=== PATIENT | male | born 1945 | race Caucasian/White ===

== ENCOUNTER → 2017-05-06 | Outpatient (CLI) | payer MEDICARE ==
--- NOTE | 2017-05-06 14:09 | US ---
EXAMINATION TYPE: US kidneys/renal and bladder DATE OF EXAM: 05/06/2017 COMPARISON: NONE CLINICAL HISTORY: Hematuria R31.29. Micro Hematuria EXAM MEASUREMENTS: Right Kidney: 9.7 x 5.3 x 4.8 cm Left Kidney: 10.6 x 5.6 x 5.1 cm Right Kidney: lobulated contour Left Kidney: no evidence of hydronephrosis Bladder: appears wnl Bilateral Jets seen: yes There is no evidence for hydronephrosis at this point in time. No nephrolithiasis is seen. No chayo s are identified. The urinary bladder is anechoic. Bilateral ureteral jets are seen. IMPRESSION: No significant finding is seen to account for patient's symptoms.
== END | disposition home or self-care (01) ==
LOC: RADUSWWP 12:02
PROVIDERS: ATTEND Urology
DX: R31.29 Other microscopic hematuria (principal)
CPT/HCPCS: 76770

== ENCOUNTER → 2018-07-27 | Outpatient (CLI) | payer MEDICARE ==
--- NOTE | 2018-07-27 09:39 | XR ---
EXAMINATION TYPE: XR elbow complete LT DATE OF EXAM: 07/27/2018 COMPARISON: NONE HISTORY: Pain FINDINGS: Three views of the elbow demonstrate no pathologic joint effusion. The osseous structures are intact . There is no acute fracture or dislocation. There is a spur along the lateral condyle. Mild nodula r prominence the proximal diaphysis of radius could relate to assess lesion. IMPRESSION: 1. No acute fracture or dislocation. If symptoms persist follow-up study in 7 to 10 days could be ob tained. 2. Possible intraosseous lesion of the proximal radius. Recommend bone scan
== END ==
LOC: RADXRMAIN 08:54
PROVIDERS: ATTEND Family Medicine
DX: M25.522 Pain in left elbow (principal)

== ENCOUNTER → 2018-08-06 | Outpatient (CLI) | payer MEDICARE ==
--- NOTE | 2018-08-06 16:45 | NM ---
EXAMINATION TYPE: NM bone scan whole body DATE OF EXAM: 08/06/2018 COMPARISON: Left elbow 07/27/2018 HISTORY: Abnormal plain film, elbow pain Delayed whole-body scanning was performed following the injection of 24.3 mCi Tc 99m MDP. Images acq uired 3 hours post injection. FINDINGS: Some mild increased uptake is noted at the right elbow is compared to the left. Mild uptake within th e wrist and hand on the right greater than left likely due to degenerative change. Uptake within the shoulders, sternoclavicular joints, knees, feet is likely degenerative. There is mi ld uptake seen at the level of the greater and lesser trochanter of the right proximal femur. IMPRESSION: Probable degenerative changes. Findings in the plain film show no definite increased uptake. Uptake a t the level of the trochanters in the right hip is indeterminate. MRI could be performed for addition al evaluation.
== END | disposition home or self-care (01) ==
LOC: RADNMMAIN 10:18
PROVIDERS: ATTEND Family Medicine
DX: M25.529 Pain in unspecified elbow (principal)
CPT/HCPCS: 78306; A9503

== ENCOUNTER 2021-11-06 11:49 | Emergency (ER) | payer MEDICARE ==
[2021-11-06 12:01] VITALS: RESP 18
[2021-11-06] MEDS ORDERED: HYDROmorphone 1 MG/ML 1 ML SYRINGE IVP STA ×2 (12:15→13:34)
--- NOTE | 2021-11-06 12:16 | ED ---
General Adult HPI - General Chief complaint: Extremity Injury, Upper Stated complaint: fall, lt wrist injury Time Seen by Provider: 11/06/21 12:09 Source: patient, family, RN notes reviewed Mode of arrival: wheelchair Limitations: no limitations - History of Present Illness Initial comments: Patient is a pleasant 76-year-old male presenting to the emergency department with left wrist pain. Patient was walking outside and slipped on ice. Patient caught himself with his arm extended backwards. Patient felt a snap. Patient has severe discomfort of the left wrist with movement, mild to moderate at rest. Patient did receive antibiotic injection and pain medicine prior to coming to the emergency department. Patient had x-rays done with reported fracture. Patient does have small amount of bleeding. No other area of injury or concern. No head injury or loss of consciousness or syncope. - Related Data Previous Rx's Medication Instructions Recorded Cephalexin [Keflex] 500 mg PO TID #21 cap 11/06/21 Allergies Allergy/AdvReac Type Severity Reaction Status Date / Time No Known Allergies Allergy Verified 11/06/21 12:00 Review of Systems ROS Statement: Those systems with pertinent positive or pertinent negative responses have been documented in the HPI. ROS Other: All systems not noted in ROS Statement are negative. Constitutional: Denies: fever Eyes: Denies: eye pain ENT: Denies: ear pain Respiratory: Denies: cough, dyspnea Cardiovascular: Denies: chest pain Endocrine: Denies: fatigue Gastrointestinal: Denies: abdominal pain Genitourinary: Denies: dysuria Musculoskeletal: Reports: as per HPI. Denies: back pain Skin: Denies: rash Neurological: Denies: weakness Past Medical History Past Medical History: Coronary Artery Disease (CAD), Hyperlipidemia, Hypertension History of Any Multi-Drug Resistant Organisms: None Reported Past Surgical History: Pacemaker Past Psychological History: No Psychological Hx Reported Smoking Status: Never smoker Past Alcohol Use History: Daily Past Drug Use History: None Reported General Exam Limitations: no limitations General appearance: alert, in no apparent distress Head exam: Present: normocephalic Eye exam: Present: normal appearance Neck exam: Present: normal inspection. Absent: tenderness Respiratory exam: Present: normal lung sounds bilaterally Cardiovascular Exam: Present: regular rate, normal rhythm Expanded Peripheral pulses: 2+: Radial (L) GI/Abdominal exam: Present: soft. Absent: tenderness Extremities exam: Present: tenderness (Tenderness and deformity left wrist, distal forearm. There is small area of skin opening, less than 0.5 cm on the lateral ulnar region.) Neurological exam: Present: alert. Absent: motor sensory deficit Psychiatric exam: Present: normal affect, normal mood Skin exam: Present: abrasion (Abrasions/small open area distal ulnar region) Course Vital Signs 11/06/21 11:54 Temperature 97 F L Pulse Rate 61 Respiratory 18 Rate Blood Pressure 149/76 O2 Sat by Pulse 100 Oximetry - Reevaluation(s) Reevaluation #1: 11/06/21 12:47 There has been delay in loading films therefore additional x-rays were ordered. 11/06/21 13:16 Orthopedics has been paged 11/06/21 13:26 Case discussed with practitioner Taylor Marvin as well as Dr. Cruz. They do recommend additional dose of Kefzol and prescription for Keflex. They do recommend August blunting and follow-up tomorrow for surgical repair Thursday. 11/06/21 13:54 (Area on the volar side was irrigated with saline and Betadine Procedures - Orthopedic Fracture Reduction Fracture #1 Consent Obtained: verbal consent Side: left Fracture Reduction Location: radius Technique: finger traps Patient Tolerated Procedure: well, no complications - Orthopedic Splinting/Casting Injury #1 Side: left Upper Extremity Injury Location: short arm, wrist Medical Decision Making - Radiology Data Radiology results: image reviewed (X-ray of the left wrist and forearm shows comminuted fracture distal radius with angulation and displacement.) Disposition Clinical Impression: Fracture of radius, distal, left, open Disposition: HOME SELF-CARE Condition: Stable Instructions (If sedation given, give patient instructions): Wrist Fracture in Adults (ED) Additional Instructions: Please do follow-up tomorrow with Dr. Cruz, number provided. Please start antibiotics tonight, prescription provided. Dr. Cruz will likely do surgery Thursday. Return for increased pain, color change, loss of sensation, uncontrolled swelling, worsening symptoms, or any other concerns. Prescriptions: Cephalexin [Keflex] 500 mg PO TID #21 cap Is patient prescribed a controlled substance at d/c from ED?: No Referrals: Lucas Mcwilliams DO [Primary Care Provider] - 1-2 days Magui Cruz DO [Doctor of Osteopathic Medicine] - 1-2 days Time of Disposition: 13:55
--- NOTE | 2021-11-06 13:26 | XR ---
EXAMINATION TYPE: XR forearm LT, XR wrist complete LT DATE OF EXAM: 11/06/2021 CLINICAL HISTORY: Fall injury with pain. TECHNIQUE: Two views of the left forearm are obtained. 4 views left wrist. COMPARISON: Outside left wrist x-ray earlier today.. FINDINGS: There is old plate proximal radial level. Visualized elbow joint appears within normal limi ts. There is redemonstration of acute comminuted displaced through the distal radial metaphysis with appr oximate 9 mm impaction and 4 mm ulnar displacement of largest distal fracture fragment with abnormal dorsal angulation. A few smaller fracture fragments including a radial side 2.2 x 0.5 cm fracture fra gment is seen. Distal ulna is intact. Carpal joint spaces are maintained. Mild to moderate associated soft tissue swelling is seen. IMPRESSION: As above.
[2021-11-06] MEDS ORDERED: ACET/COD 300 MG/30 MG STARTER PACK 6 TAB BTL PO STA (14:52)
[2021-11-06 14:57] VITALS: BP 127/60; PULSE 60; TEMP 97.6
== END 2021-11-06 14:56 | disposition home or self-care (01) ==
LOC: EC 11:49
DX: S52.502B Unspecified fracture of the lower end of left radius, initial encounter for open fracture type I or II (principal); I10 Essential (primary) hypertension; E78.5 Hyperlipidemia, unspecified; I25.10 Atherosclerotic heart disease of native coronary artery without angina pectoris; W00.0XXA Fall on same level due to ice and snow, initial encounter; Y93.01 Activity, walking, marching and hiking
CPT/HCPCS: 73090; 73110; 96365; 96375; 96376; 99284; J0690; J1170